=== PATIENT | male | born 2000 | race African-American/Black ===

== ENCOUNTER 2020-07-12 09:15 | Emergency (ER) | payer MEDICAID, OTHER ==
[~2020-07-12] VITALS: Ht 162.5 cm; Wt 81.8 kg
--- NOTE | 2020-07-12 09:16 | NUR ---
NO PMH HX SENT WITH PATIENT PATIENT MR AND SENT FROM [facility]
--- NOTE | 2020-07-12 09:28 | ED Neurological Problem ---
General Stated Complaint: SEIZURE Source: patient Exam Limitations: no limitations History of Present Illness Date Seen by Provider: Jul 12, 2020 Time Seen by Provider: 09:10 Initial Comments patient presents ER by EMS from his [facility] home with chief complaint that just prior to EMS arrival he had a seizure falling forward striking his face. Patient says he has a history of seizures but does not think he takes any medicines for it. He does also have a history of ADHD. Staff did not have any paperwork or history to provide EMS. EMS said he was postictal and having behavioral issues pulling out IVs and hard to redirect so they gave him 2 mg of Ativan once they reestablish an IV. They initiated a 500 cc bag of fluids. No history of fevers cough chills shortness of air or sick contacts. The patient denies having had breakfast this morning. He is hungry. Allergies and Home Medications Patient Home Medication List Home Medication List Reviewed: Yes Review of Systems Review of Systems Constitutional: No chills, No fever, No malaise Eyes: Denies Blindness, Denies Drainage Ears, Nose, Mouth, Throat: denies ear pain, denies ear discharge Respiratory: No cough, No short of breath Cardiovascular: No chest pain, No edema Gastrointestinal: No abdominal pain, No constipation, No diarrhea, No nausea, No vomiting Musculoskeletal: No back pain, No joint pain All Other Systems Reviewed Negative Unless Noted: Yes Past Hisuyfs-Nzunfp-Luaxri Hx Patient Social History Alcohol Use: Denies Use Recreational Drug Use: No Smoking Status: Never a Smoker Physical Exam Vital Signs Vital Signs - First Documented 07/12/20 09:16 Temp 37.0 Pulse 132 Resp 18 B/P (MAP) 141/97 (112) Pulse Ox 94 O2 Delivery Room Air Capillary Refill : Height, Weight, BMI Height: '" Weight: lbs. oz. kg; BMI Method: General Appearance: WD/WN, no apparent distress HEENT: PERRL/EOMI, normal ENT inspection, pharynx normal (old blood in the mouth.), other (atraumatic head) Neck: non-tender, full range of motion, supple Respiratory: no respiratory distress, no accessory muscle use Cardiovascular: normal peripheral pulses, regular rate, rhythm, tachycardia (130) Peripheral Pulses: 2+ Radial Pulses (R), 2+ Radial Pulses (L) Gastrointestinal: normal bowel sounds, non tender, soft Neurologic/Psychiatric: alert, normal mood/affect, oriented x 3 Crainal Nerves: normal hearing, normal speech, PERRL, other (able to transfer himself from [facility] to the cot under his own power) Motor/Sensory: no motor deficit, no sensory deficit Skin: normal color, warm/dry Progress/Results/Core Measures Results/Orders Lab Results Laboratory Tests Test 07/12/20 09:25 Range/Units White Blood Count 8.7 4.3-11.0 10^3/uL Red Blood Count 5.38 4.30-5.52 10^6/uL Hemoglobin 15.8 13.3-17.7 g/dL Hematocrit 45 40-54 % Mean Corpuscular Volume 84 80-99 fL Mean Corpuscular Hemoglobin 29 25-34 pg Mean Corpuscular Hemoglobin Concent 35 32-36 g/dL Red Cell Distribution Width 12.7 10.0-14.5 % Platelet Count 313 130-400 10^3/uL Mean Platelet Volume 9.0 9.0-12.2 fL Immature Granulocyte % (Auto) 0 % Neutrophils (%) (Auto) 70 42-75 % Lymphocytes (%) (Auto) 19 12-44 % Monocytes (%) (Auto) 9 0-12 % Eosinophils (%) (Auto) 2 0-10 % Basophils (%) (Auto) 1 0-10 % Neutrophils # (Auto) 6.1 1.8-7.8 10^3/uL Lymphocytes # (Auto) 1.7 1.0-4.0 10^3/uL Monocytes # (Auto) 0.8 0.0-1.0 10^3/uL Eosinophils # (Auto) 0.2 0.0-0.3 10^3/uL Basophils # (Auto) 0.0 0.0-0.1 10^3/uL Immature Granulocyte # (Auto) 0.0 0.0-0.1 10^3/uL Sodium Level 141 135-145 MMOL/L Potassium Level 4.4 3.6-5.0 MMOL/L Chloride Level 104 98-107 MMOL/L Carbon Dioxide Level 21 21-32 MMOL/L Anion Gap 16 H 5-14 MMOL/L Blood Urea Nitrogen 12 7-18 MG/DL Creatinine 1.14 0.60-1.30 MG/DL Estimat Glomerular Filtration Rate > 60 BUN/Creatinine Ratio 11 Glucose Level 108 H 70-105 MG/DL Calcium Level 9.3 8.5-10.1 MG/DL Corrected Calcium 8.5-10.1 MG/DL Total Bilirubin 2.5 H 0.1-1.0 MG/DL Aspartate Amino Transf (AST/SGOT) 45 H 5-34 U/L Alanine Aminotransferase (ALT/SGPT) 38 0-55 U/L Alkaline Phosphatase 139 H 40-136 U/L Total Protein 8.1 6.4-8.2 GM/DL Albumin 4.6 H 3.2-4.5 GM/DL My Orders Orders - SAEED DELGADO Ua Culture If Indicated (07/12/20:22) Drug Screen Stat (Urine) (07/12/20:22) Cbc With Automated Diff (07/12/20:) Comprehensive Metabolic Panel (07/12/20:) General/Regular (07/12/20 Breakfast) Chest 1 View, Ap/Pa Only (07/12/20:28) Continuous Ekg Monitoring (07/12/20:28) Ekg Tracing (07/12/20:28) Vital Signs/I&O 07/12/20 09:16 Temp 37.0 Pulse 132 Resp 18 B/P (MAP) 141/97 (112) Pulse Ox 94 O2 Delivery Room Air Progress Progress Note : Time: 09:27 Progress Note The patient describes having had a seizure and postictal. He is a little more calm but not sedated at this time. Give him something to eat and drink but him finish his IV fluids and check some labs, urine for clues as to why he is still tachycardic. Initial ECG Impression Date: Jul 12, 2020 Initial ECG Impression Time: 10:42 Initial ECG Rate: 107 Initial ECG Rhythm: S.Tach Initial ECG Intervals: Normal Initial ECG Impression: Normal, Nonspecific Changes Initial ECG Comparisson: No Previous ECG Available Comment Sinus tachycardia without clinically relevant ST changes. Diagnostic Imaging Diagonstic Imaging: Xray Plain Films/CT/US/NM/MRI: chest Comments [facility] [place] NAME: REY MCCRACKEN [facility] REC#: [id number] PT STATUS: REG ER : 2000 PHYSICIAN: SAEED DELGADO MD ADMIT DATE: 07/12/20/ER Draft Date of Exam:07/12/20 CHEST 1 VIEW, AP/PA ONLY INDICATION: Tachycardia. Seizure. COMPARISON: None FINDINGS: Single frontal view of the chest demonstrates normal heart size and pulmonary vascularity. The lungs are well aerated and clear. No large pleural effusion or pneumothorax is seen. The visualized osseous structures show no acute abnormalities. IMPRESSION: 1. No acute cardiopulmonary process. Dictated on workstation # [id number] Dict: 07/12/20 1048 Trans: 07/12/20 1049 [facility] [id number] Interpreted by: JEEVAN STEIN MD Electronically signed by: Reviewed: Reviewed by Me Departure Impression Primary Impression: Seizure Additional Impressions: Epilepsy Qualified Codes: G40.909 - Epilepsy, unspecified, not intractable, without status epilepticus Total bilirubin, elevated Disposition: 01 HOME, SELF-CARE Condition: Stable Departure-Patient Inst. Decision time for Depature: 13:07 Patient Instructions: Seizures Add. Discharge Instructions: Call your primary care doctor for an appointment within the next 1-2 weeks to discuss your seizures as well as your elevated bilirubin. It is uncertain what the significance of this is and they can help you determine if it something you need to be concerned about by seeing you in the clinic. SAEED DELGADO Jul 12, 2020 09:28
[2020-07-12 09:33] LABS: BASOPHILS % (AUTO) 1 % (0-10); EOSINOPHILS # (AUTO) 0.2 10^3/uL (0.0-0.3); EOSINOPHILS % (AUTO) 2 % (0-10); HEMATOCRIT 45 % (40-54); HEMOGLOBIN 15.8 g/dL (13.3-17.7); LYMPHOCYTES # (AUTO) 1.7 10^3/uL (1.0-4.0); LYMPHOCYTES % (AUTO) 19 % (12-44); MEAN CORPUSCULAR HEMOGLOBIN 29 pg (25-34); MEAN CORPUSCULAR HGB CONC 35 g/dL (32-36); MEAN CORPUSCULAR VOLUME 84 fL (80-99); MONOCYTES # (AUTO) 0.8 10^3/uL (0.0-1.0); MONOCYTES % (AUTO) 9 % (0-12); NEUTROPHILS # (AUTO) 6.1 10^3/uL (1.8-7.8); NEUTROPHILS % (AUTO) 70 % (42-75); PLATELET COUNT 313 10^3/uL (130-400); WHITE BLOOD COUNT 8.7 10^3/uL (4.3-11.0)
[2020-07-12 09:42] LABS: ALBUMIN 4.6 GM/DL (3.2-4.5)
[2020-07-12 09:43] LABS: CHLORIDE 104 MMOL/L (98-107); POTASSIUM 4.4 MMOL/L (3.6-5.0); SODIUM 141 MMOL/L (135-145)
[2020-07-12 09:44] LABS: CALCIUM 9.3 MG/DL (8.5-10.1)
[2020-07-12 09:45] LABS: GLUCOSE 108 MG/DL (70-105); TOTAL PROTEIN 8.1 GM/DL (6.4-8.2)
[2020-07-12 09:46] LABS: CARBON DIOXIDE 21 MMOL/L (21-32)
[2020-07-12 09:47] LABS: BILIRUBIN,TOTAL 2.5 MG/DL (0.1-1.0)
[2020-07-12 09:49] LABS: ALKALINE PHOSPHATASE 139 U/L (40-136); CREATININE SERUM 1.14 MG/DL (0.60-1.30); GFR ESTIMATED > 60
[2020-07-12 09:50] LABS: BUN/CREATININE RATIO 11
[2020-07-12 09:52] LABS: ALANINE AMINOTRANSFERASE 38 U/L (0-55)
--- NOTE | 2020-07-12 10:50 | Diagnostic Imaging Report ---
INDICATION: Tachycardia. Seizure. COMPARISON: None FINDINGS: Single frontal view of the chest demonstrates normal heart size and pulmonary vascularity. The lungs are well aerated and clear. No large pleural effusion or pneumothorax is seen. The visualized osseous structures show no acute abnormalities. IMPRESSION: 1. No acute cardiopulmonary process. Dictated by: Dictated on workstation # [id number]
--- NOTE | 2020-07-12 12:54 | NUR ---
STAFF CALLED FROM [facility]
[2020-07-12 13:18] VITALS: BP 147/96
== END 2020-07-12 13:24 | disposition home or self-care (01) ==
LOC: ER 09:17
DX: R56.9 Unspecified convulsions (principal); E80.6 Other disorders of bilirubin metabolism
CPT/HCPCS: 36415; 71045; 80053; 85025; 93005

== ENCOUNTER 2023-03-21 13:32 | Emergency (ER) | payer MEDICAID ==
[~2023-03-21] VITALS: Ht 165.1 cm; Wt 68.0 kg
--- NOTE | 2023-03-21 13:41 | ED General ---
General Chief Complaint: General Problems/Pain Stated Complaint: ALTERED MENTAL STATUS Source of Information: Patient, EMS Exam Limitations: Other (Mental impairment) History of Present Illness Date Seen by Provider: Mar 21, 2023 Time Seen by Provider: 13:27 Initial Comments 23-year-old male presents to the ER from [facility] via EMS for possible seizure-like activity. EMS reports that when they arrived, 4 staff members were holding patient down. EMS reports that patient was shaking, but did not appear to be having a seizure. As soon as staff let go, he sat up and was fine and was talking with EMS. Patient had an aggressive outburst again when EMS tried to touch him. EMS gave 1 mg of IM Ativan for patient's aggression. Patient is alert and oriented at this time. He states that he has been throwing up green stuff, unsure if he is vomiting or coughing, unable to state if this is phlegm. Denies any abdominal pain. Denies pain anywhere. According to patient's chart, he has depression and a nonepileptic seizure disorder however patient is not on any antiseizure medications. He currently takes clonidine, Abilify, clonazepam, escitalopram, and ziprasidone. Staff member from [place] provided more information. She states that he had 3 seizures today and 1 episode of vomiting afterwards. She states that he had whole body convulsing in his eyes rolled back in his head. She reports that he was aggressive and acted like he was hallucinating after the seizures. States that he is normally not an aggressive person, and does not become violent. Caregiver states that patient has not been on seizure medications for at least 6 months. She is uncertain what he was taking at that time. She reports that he has had approximately 4 other seizures since he was taken off his medication. Allergies and Home Medications Allergies Coded Allergies: No Known Drug Allergies (Unverified , 03/21/23) Patient Home Medication List Home Medication List Reviewed: Yes Review of Systems Review of Systems Constitutional: see HPI Past Lrbaljw-Ljxbfn-Mscmxl Hx Past Medical History Surgeries: No Respiratory: No Hypertension Neurological: Yes (POSSIBLE SEIZURE) Endocrine: No HEENT: No Cancer: No Psychosocial: No Integumentary: No Physical Exam Vital Signs Vital Signs - First Documented 03/21/23 03/21/23 13:33 14:50 Temp 37.5 Pulse 98 Resp 17 B/P (MAP) 120/67 (84) Pulse Ox 96 O2 Delivery Room Air Capillary Refill : Height, Weight, BMI Height: '" Weight: lbs. oz. kg; 30.00 BMI Method: General Appearance: No Apparent Distress, WD/WN HEENT: PERRL/EOMI Neck: Normal Inspection, Supple Respiratory: Lungs Clear, Normal Breath Sounds, No Accessory Muscle Use, No Respiratory Distress Cardiovascular: Regular Rate, Rhythm Extremity: Normal Inspection, Normal Range of Motion Neurologic/Psychiatric: Alert, Oriented x3, Normal Mood/Affect, sole sewer hand II-XII Norm as Tested Skin: Normal Color, Warm/Dry Progress/Results/Core Measures Suspected Sepsis SIRS Temperature: Pulse: Respiratory Rate: Laboratory Tests 03/21/23 13:55: White Blood Count 11.8H Blood Pressure / Mean: Laboratory Tests 03/21/23 13:55: Creatinine 1.18, Platelet Count 288, Total Bilirubin 1.8H Results/Orders Lab Results Laboratory Tests Test 03/21/23 13:48 03/21/23 13:55 Range/Units Urine Color YELLOW Urine Clarity CLEAR Urine pH 6.0 5-9 Urine Specific [place] 1.010 L 1.016-1.022 Urine Protein NEGATIVE NEGATIVE Urine Glucose (UA) NEGATIVE NEGATIVE Urine Ketones NEGATIVE NEGATIVE Urine Nitrite NEGATIVE NEGATIVE Urine Bilirubin NEGATIVE NEGATIVE Urine Urobilinogen 1.0 < = 1.0 MG/DL Urine Leukocyte Esterase NEGATIVE NEGATIVE Urine RBC (Auto) NEGATIVE NEGATIVE Urine RBC NONE /HPF Urine WBC NONE /HPF Urine Squamous Epithelial Cells RARE /HPF Urine Crystals NONE /LPF Urine Bacteria NEGATIVE /HPF Urine Casts NONE /LPF Urine Mucus NEGATIVE /LPF Urine Culture Indicated NO White Blood Count 11.8 H 4.3-11.0 10^3/uL Red Blood Count 4.95 4.30-5.52 10^6/uL Hemoglobin 15.4 13.3-17.7 g/dL Hematocrit 43 40-54 % Mean Corpuscular Volume 86 80-99 fL Mean Corpuscular Hemoglobin 31 25-34 pg Mean Corpuscular Hemoglobin Concent 36 32-36 g/dL Red Cell Distribution Width 12.6 10.0-14.5 % Platelet Count 288 130-400 10^3/uL Mean Platelet Volume 9.3 9.0-12.2 fL Immature Granulocyte % (Auto) 0 % Neutrophils (%) (Auto) 79 H 42-75 % Lymphocytes (%) (Auto) 13 12-44 % Monocytes (%) (Auto) 6 0-12 % Eosinophils (%) (Auto) 1 0-10 % Basophils (%) (Auto) 1 0-10 % Neutrophils # (Auto) 9.4 H 1.8-7.8 10^3/uL Lymphocytes # (Auto) 1.6 1.0-4.0 10^3/uL Monocytes # (Auto) 0.7 0.0-1.0 10^3/uL Eosinophils # (Auto) 0.1 0.0-0.3 10^3/uL Basophils # (Auto) 0.1 0.0-0.1 10^3/uL Immature Granulocyte # (Auto) 0.0 0.0-0.1 10^3/uL Sodium Level 138 135-145 MMOL/L Potassium Level 4.5 3.6-5.0 MMOL/L Chloride Level 105 98-107 MMOL/L Carbon Dioxide Level 21 21-32 MMOL/L Anion Gap 12 5-14 MMOL/L Blood Urea Nitrogen 14 7-18 MG/DL Creatinine 1.18 0.60-1.30 MG/DL Estimat Glomerular Filtration Rate 89 BUN/Creatinine Ratio 12 Glucose Level 93 70-105 MG/DL Calcium Level 10.1 8.5-10.1 MG/DL Corrected Calcium 8.5-10.1 MG/DL Total Bilirubin 1.8 H 0.1-1.0 MG/DL Aspartate Amino Transf (AST/SGOT) 39 H 5-34 U/L Alanine Aminotransferase (ALT/SGPT) 39 0-55 U/L Alkaline Phosphatase 94 40-136 U/L Total Protein 8.4 H 6.4-8.2 GM/DL Albumin 4.8 H 3.2-4.5 GM/DL My Orders Orders - BRO,FADIA R REMOTE P[employer]OT OPERATOR Cbc With Automated Diff (03/21/23 13:34) Comprehensive Metabolic Panel (03/21/23 13:34) Ua Culture If Indicated (03/21/23 13:34) Vital Signs/I&O 03/21/23 03/21/23 13:33 14:50 Temp 37.5 Pulse 98 92 Resp 17 18 B/P (MAP) 120/67 (84) 125/61 Pulse Ox 96 O2 Delivery Room Air Room Air Capillary Refill : Progress Note : Progress Note Patient seen and evaluated, resting comfortably in bed, no acute distress. Patient is alert and oriented, not postictal. According to EMS report, this does not sound like a seizure. Patient may have been having an aggressive outburst. We will obtain basic labs including CBC, CMP and urinalysis. 1439 Labs reviewed. CBC shows slightly elevated WBC 11.8, slightly elevated neutrophil percentage 79. CMP grossly normal, total bilirubin slightly elevated 1.8, AST slightly elevated 39, total protein slightly elevated 8.4, albumin slightly elevated 4.8. Patient's total bilirubin was elevated in the past at 2.5. Urinalysis negative for infection. Results discussed with patient and caregiver. I looked through patient's medications and his EMR, I do not see that he has been prescribed any anticonvulsants in the last year. I instructed caregiver to have patient follow-up with primary care provider, Dr. Leon, to evaluate for seizures and possibly start him on medication for seizures. I will not start him on any medications at this time. Discharge instructions and return precautions provided. Departure Impression Primary Impression: Seizure Additional Impression: Total bilirubin, elevated Disposition: 01 HOME, SELF-CARE Condition: Stable Departure-Patient Inst. Decision time for Depature: 14:42 Referrals: NO,LOCAL PHYSICIAN (PCP/Family) Primary Care Physician Patient Instructions: Seizures Add. Discharge Instructions: Call Dr. Leon today to schedule a follow-up appointment for next week to see if he needs to be restarted on his antiseizure medications. Return for recurrent seizures, seizures lasting longer than 5 minutes, difficulty walking or moving your arms or legs, slurred speech, difficulty with normal activity, abnormal behavior, vision changes, or any other new, concerning, or worsening symptoms. All discharge instructions reviewed with patient and/or family. Voiced understanding. FADIA CRABTREE APRN Mar 21, 2023 13:41
[2023-03-21 13:56] LABS: BILIRUBIN,URINE NEGATIVE (NEGATIVE); CLARITY,URINE CLEAR; COLOR,URINE YELLOW; GLUCOSE, URINE (UA) NEGATIVE (NEGATIVE); KETONES,URINE NEGATIVE (NEGATIVE); LEUKOCYTE ESTERASE ,URINE NEGATIVE (NEGATIVE); NITRITE,URINE NEGATIVE (NEGATIVE); PROTEIN,URINE NEGATIVE (NEGATIVE)
[2023-03-21 14:00] LABS: BASOPHILS # (AUTO) 0.1 10^3/uL (0.0-0.1); BASOPHILS % (AUTO) 1 % (0-10); EOSINOPHILS # (AUTO) 0.1 10^3/uL (0.0-0.3); EOSINOPHILS % (AUTO) 1 % (0-10); HEMATOCRIT 43 % (40-54); HEMOGLOBIN 15.4 g/dL (13.3-17.7); LYMPHOCYTES # (AUTO) 1.6 10^3/uL (1.0-4.0); LYMPHOCYTES % (AUTO) 13 % (12-44); MEAN CORPUSCULAR HEMOGLOBIN 31 pg (25-34); MEAN CORPUSCULAR HGB CONC 36 g/dL (32-36); MEAN CORPUSCULAR VOLUME 86 fL (80-99); MEAN PLATELET VOLUME 9.3 fL (9.0-12.2); MONOCYTES # (AUTO) 0.7 10^3/uL (0.0-1.0); MONOCYTES % (AUTO) 6 % (0-12); NEUTROPHILS # (AUTO) 9.4 10^3/uL (1.8-7.8); NEUTROPHILS % (AUTO) 79 % (42-75); PLATELET COUNT 288 10^3/uL (130-400); WHITE BLOOD COUNT 11.8 10^3/uL (4.3-11.0)
[2023-03-21 14:03] LABS: BACTERIA,URINE NEGATIVE /HPF; SQUAMOUS EPITHELIAL CELL,UR RARE /HPF
[2023-03-21 14:14] LABS: ALBUMIN 4.8 GM/DL (3.2-4.5); CHLORIDE 105 MMOL/L (98-107); POTASSIUM 4.5 MMOL/L (3.6-5.0); SODIUM 138 MMOL/L (135-145)
[2023-03-21 14:15] LABS: CALCIUM 10.1 MG/DL (8.5-10.1)
[2023-03-21 14:17] LABS: GLUCOSE 93 MG/DL (70-105); TOTAL PROTEIN 8.4 GM/DL (6.4-8.2)
[2023-03-21 14:18] LABS: CARBON DIOXIDE 21 MMOL/L (21-32)
[2023-03-21 14:19] LABS: BILIRUBIN,TOTAL 1.8 MG/DL (0.1-1.0)
[2023-03-21 14:20] LABS: ALKALINE PHOSPHATASE 94 U/L (40-136); CREATININE SERUM 1.18 MG/DL (0.60-1.30); GFR ESTIMATED 89
[2023-03-21 14:21] LABS: BUN/CREATININE RATIO 12
[2023-03-21 14:23] LABS: ALANINE AMINOTRANSFERASE 39 U/L (0-55)
[2023-03-21 14:50] VITALS: BP 125/61
== END 2023-03-21 14:50 | disposition home or self-care (01) ==
LOC: EDUNIT# 13:32 → ER 13:33
DX: R56.9 Unspecified convulsions (principal); E80.7 Disorder of bilirubin metabolism, unspecified; D72.828 Other elevated white blood cell count; R74.8 Abnormal levels of other serum enzymes; R74.01 Elevation of levels of liver transaminase levels; Z79.899 Other long term (current) drug therapy
CPT/HCPCS: 36415; 80053; 81000; 85025; 99283